=== PATIENT | female | born 1975 | race Caucasian/White ===

== ENCOUNTER 2018-12-10 09:49 | Emergency (ER) | payer MEDICAID ==
[2018-12-10 11:36] LABS: URINE PH (Dip) POC 7.5 (5.0-8.5)
[2018-12-10 11:36] LABS: URINE BLOOD (Dip) POC Negative (NEGATIVE); URINE GLUCOSE (Dip) POC Negative (NEGATIVE); URINE KETONES (Dip) POC Negative (NEGATIVE); URINE LEUKOCYTE EST (Dip) POC Negative (NEGATIVE); URINE NITRITE (Dip) POC Negative (NEGATIVE); URINE TOTAL PROTEIN POC Negative (NEGATIVE)
[2018-12-10] MEDS: DIAZEPAM 5 MG TAB PO (11:46)
[2018-12-10] MEDS: DEXAMETHASONE 10 MG/ML 1 ML INJ IM (11:46)
[2018-12-10] MEDS: KETOROLAC 60 MG INJ IM (11:47)
== END 2018-12-10 12:15 | disposition home or self-care (01) ==
LOC: FTE 09:49
DX: M54.6 Pain in thoracic spine (principal)
CPT/HCPCS: 71045; 81003; 81025; 96372; 99284-25